=== PATIENT | male | born 1980 | race Two or more races ===

== ENCOUNTER 2022-11-22 11:19 | Inpatient (IN) | payer OTHER ==
[2022-11-22 12:01] VITALS: BMI 28.2
[2022-11-22] MEDS ORDERED: DICYCLOMINE HCL 10 MG CAPSULE PO PRN (13:22)
[2022-11-22] MEDS ORDERED: LOPERAMIDE HCL 2 MG CAPSULE PO PRN (13:22)
[2022-11-22] MEDS ORDERED: hydrOXYzine PAMOATE 25 MG CAPSULE (FP) PO PRN (13:22)
[2022-11-22] MEDS ORDERED: MAG HYDROX/AL HYDROX/SIMETH 30 ML UNIT-DOSE CUP PO PRN (13:22)
[2022-11-22] MEDS ORDERED: METHOCARBAMOL 500 MG TABLET PO PRN (13:22)
[2022-11-22] MEDS ORDERED: BENZONATATE 200 MG CAPSULE PO PRN (13:22)
[2022-11-22] MEDS ORDERED: ACETAMINOPHEN 325 MG TABLET (FP) PO PRN (13:22)
[2022-11-22] MEDS ORDERED: MAGNESIUM HYDROX 2400MG/30ML ORAL SUSPENSION 30 ML CUP PO PRN (13:22)
[2022-11-22] MEDS ORDERED: IBUPROFEN 400 MG TABLET (FP) PO PRN (13:22)
[2022-11-22] MEDS ORDERED: POLYETHYLENE GLYCOL (HEALTHYLAX) 3350 17 GM PACKET PO PRN (13:22)
[2022-11-22] MEDS ORDERED: guaiFENesin 600 MG TABLET.ER (FP) PO PRN (13:22)
[2022-11-22] MEDS ORDERED: BENZOCAINE/MENTHOL (CHLORASEPTIC ) LOZENGE MM PRN (13:22)
[2022-11-22] MEDS ORDERED: NICOTINE POLACRILEX 2 MG GUM BUC PRN (13:22)
[2022-11-22] MEDS ORDERED: IBUPROFEN 600 MG TABLET (FP) PO PRN (13:22)
[2022-11-22] MEDS ORDERED: P-EPHED 60MG/TRIPROLIDI 2.5MG TABLET PO PRN (13:22)
[2022-11-22] MEDS ORDERED: BISMUTH SUBSALICYLATE 262 MG/15 ML BTL PO PRN (13:22)
[2022-11-22] MEDS ORDERED: ONDANSETRON *ODT* 4 MG TABLET SL PRN (13:22)
[2022-11-22] MEDS: PANTOPRAZOLE 20 MG TABLET PO SCH (14:42)
[2022-11-22] MEDS ORDERED: diazePAM 5 MG TABLET PO PRN (20:14)
[2022-11-22] MEDS ORDERED: THIAMINE HCL 100 MG TABLET (FP) PO SCH (22:00)
[2022-11-22] MEDS ORDERED: MELATONIN 5 MG TABLETS PO SCH (22:00)
[2022-11-22] MEDS: diazePAM 5 MG TABLET PO SCH (22:32)
[2022-11-23] MEDS: diazePAM 5 MG TABLET PO SCH ×2 (06:00→10:10)
[2022-11-23] MEDS ORDERED: PRENATAL VITAMINS W/ FOLIC ACID TABLET (FP) PO SCH (10:00)
[2022-11-23] MEDS: PANTOPRAZOLE 20 MG TABLET PO SCH (10:10)
[2022-11-23 13:07] VITALS: PULSE 81
[2022-11-23 15:16] LABS: HEMOGLOBIN 13.2 GM/dL (11.7-16.9); MCH 28.9 pg (25.7-33.7); MCHC 33.1 g/dl (32.0-35.9); MEAN CELL VOLUME 87.4 fl (80-96); MEAN PLT VOLUME 7.8 fl (7.5-11.1); PLATELET COUNT 336 10^3/uL (134-434); RBC 4.57 M/mm3 (4.00-5.60); RDW 14.9 % (11.9-15.9); WHITE BLOOD COUNT 7.3 K/mm3 (4.0-10.0)
[2022-11-23 15:20] LABS: POTASSIUM 4.2 mmol/L (3.5-5.1)
[2022-11-23 15:26] LABS: ALBUMIN 3.5 g/dl (3.4-5.0); BLOOD UREA NITROGEN 12.5 mg/dL (7-18); CALCIUM 9.1 mg/dL (8.5-10.1)
[2022-11-23 15:29] LABS: CREATININE 0.9 mg/dL (0.55-1.3)
[2022-11-23 15:30] LABS: BILIRUBIN,TOTAL 0.8 mg/dL (0.2-1); TOT PROT 6.8 g/dl (6.4-8.2)
[2022-11-23 17:09] VITALS: BP 107/66; RESP 20; TEMP 97.7
[2022-11-24] MEDS ORDERED: diazePAM 5 MG TABLET PO SCH (06:00)
[2022-11-25] MEDS ORDERED: diazePAM 5 MG TABLET PO SCH (06:00)
[2022-11-26] MEDS ORDERED: diazePAM 5 MG TABLET PO ONE (06:00)
== END 2022-11-23 16:48 | disposition left against medical advice (07) | DRG 770 ==
LOC: YASAS 11:19 → Y3N 13:54
PROVIDERS: ADMIT Allergy & Immunology; ATTEND Allergy & Immunology
PROC: HZ2ZZZZ Detoxification Services for Substance Abuse Treatment (ICD-10-PCS; principal; 2022-11-22)
DX: F10.230 Alcohol dependence with withdrawal, uncomplicated (principal); F14.20 Cocaine dependence, uncomplicated; F12.20 Cannabis dependence, uncomplicated; F17.210 Nicotine dependence, cigarettes, uncomplicated
CPT/HCPCS: 36415; 80053; 85027; 86780; 87635; 87811